=== PATIENT | female | born 1960 ===

== ENCOUNTER 2021-05-09 09:58 | Inpatient (IN) ==
[2021-05-09 10:51] LABS: Basophils % 0.3 % (0.0-0.8); Eosinophils # 0.1 10*3/uL (0.0-0.87); Eosinophils % 0.8 % (0.00-10.9); Hematocrit 41.8 VOL% (35.7-47.0); Hemoglobin 13.6 GM/DL (12.0-16.0); Immature Granulocytes % 0.5 %; Immature Granulocytes Absolute 0.05 #; Lymphocytes % 20.6 % (21.3-54.2); Mean Corpuscular HGB Conc 32.5 GM/DL (32-36); Mean Corpuscular Volume 90.7 FL (87-102); Mean Platelet Volume 10.3 FL (9.6-12.0); Monocytes % 9.4 % (1.7-12.7); Neutrophils % 68.4 % (38.7-73.9); Platelet Count 314 T/CUMM (130-400); Red Blood Count 4.61 MC/CUMM (3.8-5.5); Red Cell Distribution Width 12.5 % (9.3-17.3); White Blood Count 9.6 T/CUMM (4-12)
[2021-05-09 11:06] LABS: Calcium 8.6 MG/DL (8.5-10.1); Osmolality,Calculated 288.1 MOS/KG (273-304); Potassium 3.9 MMOL/L (3.5-5.1)
[2021-05-09] MEDS ORDERED: HYDROmorphone 2 MG/1 ML VIAL IV STA (11:11)
[2021-05-09] MEDS ORDERED: ONDANSETRON 4 MG/2 ML VIAL IV STA (11:11)
[2021-05-09] MEDS ORDERED: ONDANSETRON 4 MG/2 ML VIAL IV PRN (12:59)
[2021-05-09] MEDS ORDERED: DEXTROSE 50% 25 GM/50 ML VIAL IV PRN (12:59)
[2021-05-09] MEDS ORDERED: hydrALAZINE 20 MG/1 ML VIAL IV PRN (12:59)
[2021-05-09] MEDS ORDERED: SIMETHICONE CHEW 125 MG TABLET PO PRN (12:59)
[2021-05-09] MEDS ORDERED: GLUCAGON 1 MG VIAL IM PRN (12:59)
[2021-05-09] MEDS ORDERED: BISACODYL 5 MG TABLET PO PRN (12:59)
[2021-05-09] MEDS ORDERED: CALCIUM CARBONATE CHEW 500 MG TABLET PO PRN (12:59)
[2021-05-09] MEDS ORDERED: ACETAMINOPHEN 325 MG TABLET PO PRN (13:38)
[2021-05-09] MEDS: INSULIN GLARGINE 100 UNIT/ML SUBCUT SCH ×2 (14:15→20:32)
[2021-05-09] MEDS: CLINDAMYCIN INJ 600 MG/50 ML PREMIX IV SCH ×2 (14:15→20:29)
[2021-05-09] MEDS: PANTOPRAZOLE 40 MG TABLET PO SCH (14:16)
[2021-05-09] MEDS: INSULIN LISPRO 100 UNIT/ML SUBCUT SCH ×2 (17:09→20:32)
[2021-05-09] MEDS: ENOXAPARIN 40 MG/0.4 ML SYRINGE SUBCUT SCH (20:32)
[2021-05-10] MEDS: CLINDAMYCIN INJ 600 MG/50 ML PREMIX IV SCH ×4 (01:51→20:54)
[2021-05-10 04:39] LABS: Basophils % 0.2 % (0.0-0.8); Eosinophils # 0.2 10*3/uL (0.0-0.87); Eosinophils % 1.5 % (0.00-10.9); Hematocrit 38.9 VOL% (35.7-47.0); Hemoglobin 12.6 GM/DL (12.0-16.0); Immature Granulocytes % 0.4 %; Immature Granulocytes Absolute 0.04 #; Lymphocytes # 2.1 10*3/uL (1.4-4.0); Lymphocytes % 18.9 % (21.3-54.2); Mean Corpuscular HGB Conc 32.4 GM/DL (32-36); Mean Corpuscular Volume 90.9 FL (87-102); Mean Platelet Volume 10.5 FL (9.6-12.0); Monocytes % 9.8 % (1.7-12.7); Neutrophils % 69.2 % (38.7-73.9); Platelet Count 310 T/CUMM (130-400); Red Blood Count 4.28 MC/CUMM (3.8-5.5); Red Cell Distribution Width 12.4 % (9.3-17.3); White Blood Count 11.3 T/CUMM (4-12)
[2021-05-10 05:21] LABS: Calcium 8.7 MG/DL (8.5-10.1); Osmolality,Calculated 277.8 MOS/KG (273-304); Potassium 3.6 MMOL/L (3.5-5.1); Risk Ratio 3.17; Thyroid Stimulating Hormone 0.944 uIU/ml (0.358-3.74); VLDL Cholesterol 22.6 MG/DL
[2021-05-10] MEDS: INSULIN LISPRO 100 UNIT/ML SUBCUT SCH ×4 (07:42→20:59)
[2021-05-10] MEDS: INSULIN GLARGINE 100 UNIT/ML SUBCUT SCH ×2 (09:02→20:59)
[2021-05-10] MEDS: PANTOPRAZOLE 40 MG TABLET PO SCH (09:58)
[2021-05-10] MEDS: CHLORHEXIDINE 0.12% ORAL RINSE 60 ML BOTTLE SWISH/SPIT SCH ×2 (09:58→20:55)
[2021-05-10] MEDS: ENOXAPARIN 40 MG/0.4 ML SYRINGE SUBCUT SCH (21:00)
[2021-05-11] MEDS: CLINDAMYCIN INJ 600 MG/50 ML PREMIX IV SCH ×4 (04:26→20:41)
[2021-05-11 05:36] LABS: Basophils % 0.3 % (0.0-0.8); Eosinophils # 0.2 10*3/uL (0.0-0.87); Eosinophils % 1.8 % (0.00-10.9); Hematocrit 40.9 VOL% (35.7-47.0); Hemoglobin 13.3 GM/DL (12.0-16.0); Immature Granulocytes % 0.4 %; Immature Granulocytes Absolute 0.05 #; Lymphocytes # 2.2 10*3/uL (1.4-4.0); Lymphocytes % 17.1 % (21.3-54.2); Mean Corpuscular HGB Conc 32.5 GM/DL (32-36); Mean Corpuscular Volume 90.7 FL (87-102); Mean Platelet Volume 10.4 FL (9.6-12.0); Monocytes % 8.3 % (1.7-12.7); Neutrophils % 72.1 % (38.7-73.9); Platelet Count 345 T/CUMM (130-400); Red Blood Count 4.51 MC/CUMM (3.8-5.5); Red Cell Distribution Width 12.1 % (9.3-17.3); White Blood Count 12.5 T/CUMM (4-12)
[2021-05-11 06:05] LABS: Calcium 9.2 MG/DL (8.5-10.1); Osmolality,Calculated 268.5 MOS/KG (273-304); Potassium 3.5 MMOL/L (3.5-5.1)
[2021-05-11] MEDS: INSULIN LISPRO 100 UNIT/ML SUBCUT SCH ×4 (08:15→20:43)
[2021-05-11] MEDS: PANTOPRAZOLE 40 MG TABLET PO SCH (08:53)
[2021-05-11] MEDS: CHLORHEXIDINE 0.12% ORAL RINSE 60 ML BOTTLE SWISH/SPIT SCH ×2 (08:53→20:42)
[2021-05-11] MEDS ORDERED: POTASSIUM CHLORIDE 20 MEQ TABLET PO ONE (09:00)
[2021-05-11] MEDS: INSULIN GLARGINE 100 UNIT/ML SUBCUT SCH ×2 (09:50→20:43)
[2021-05-11] MEDS ORDERED: LIDOCAINE 2% 5 ML VIAL ONE (11:52)
[2021-05-11] MEDS ORDERED: fentaNYL 100 MCG/2 ML VIAL ONE (11:52)
[2021-05-11] MEDS ORDERED: SUCCINYLCHOLINE 200 MG/10 ML VIAL ONE (11:52)
[2021-05-11] MEDS ORDERED: ROCURONIUM 50 MG/5 ML VIAL IV ONE (11:52)
[2021-05-11] MEDS ORDERED: propofoL 200 MG/20 ML VIAL IV ONE (11:52)
[2021-05-11] MEDS ORDERED: MIDAZOLAM 2 MG/2 ML VIAL ONE (11:52)
[2021-05-11] MEDS ORDERED: LIDOCAINE 1%/EPI INJ 20 ML VIAL ONE (11:59)
[2021-05-11] MEDS ORDERED: LACTATED RINGERS 1,000 ML IV SCH (12:00)
[2021-05-11] MEDS ORDERED: ONDANSETRON 4 MG/2 ML VIAL ONE (12:20)
[2021-05-11] MEDS ORDERED: DEXAMETHASONE 4 MG/1 ML VIAL ONE ×3 (12:20→12:28)
[2021-05-11] MEDS ORDERED: ONDANSETRON 4 MG/2 ML VIAL IV PRN (12:56)
[2021-05-11] MEDS ORDERED: HYDROmorphone 2 MG/1 ML VIAL ONE (12:59)
[2021-05-11] MEDS: HYDROmorphone 2 MG/1 ML VIAL IV PRN ×4 (13:00→16:30)
[2021-05-11] MEDS: ENOXAPARIN 40 MG/0.4 ML SYRINGE SUBCUT SCH (20:42)
[2021-05-12] MEDS: CLINDAMYCIN INJ 600 MG/50 ML PREMIX IV SCH ×2 (03:03→09:21)
[2021-05-12 05:29] LABS: Basophils % 0.2 % (0.0-0.8); Hematocrit 39.1 VOL% (35.7-47.0); Hemoglobin 12.7 GM/DL (12.0-16.0); Immature Granulocytes % 0.7 %; Immature Granulocytes Absolute 0.08 #; Lymphocytes # 1.7 10*3/uL (1.4-4.0); Lymphocytes % 15.1 % (21.3-54.2); Mean Corpuscular HGB Conc 32.5 GM/DL (32-36); Mean Corpuscular Volume 90.7 FL (87-102); Mean Platelet Volume 10.5 FL (9.6-12.0); Monocytes % 10.2 % (1.7-12.7); Neutrophils % 73.8 % (38.7-73.9); Platelet Count 392 T/CUMM (130-400); Red Blood Count 4.31 MC/CUMM (3.8-5.5); Red Cell Distribution Width 12.1 % (9.3-17.3); White Blood Count 11.5 T/CUMM (4-12)
[2021-05-12 06:04] LABS: Calcium 9.3 MG/DL (8.5-10.1); Potassium 4.4 MMOL/L (3.5-5.1)
[2021-05-12] MEDS: PANTOPRAZOLE 40 MG TABLET PO SCH (09:20)
[2021-05-12] MEDS: INSULIN GLARGINE 100 UNIT/ML SUBCUT SCH (09:21)
[2021-05-12] MEDS: CHLORHEXIDINE 0.12% ORAL RINSE 60 ML BOTTLE SWISH/SPIT SCH (09:22)
[2021-05-12] MEDS: INSULIN LISPRO 100 UNIT/ML SUBCUT SCH ×2 (09:22→11:30)
[2021-05-12 12:27] VITALS: BP 145/75
[2021-05-12] MEDS ORDERED: metFORMIN 500 MG TABLET PO SCH (17:00)
[2021-05-12] MEDS ORDERED: CLINDAMYCIN 300 MG CAPSULE PO SCH (18:00)
[2021-05-12] MEDS ORDERED: CLINDAMYCIN 150 MG CAPSULE PO SCH (21:00)
== END 2021-05-12 15:26 | disposition home or self-care (01) | DRG 863 ==
LOC: N.ED 09:58 → SUATTDRO 13:06 → N.EDINP 13:06 → N.5E 13:22
PROVIDERS: ADMIT Internal Medicine; ATTEND Internal Medicine